=== PATIENT | female | born 2000 | race African-American/Black ===

== ENCOUNTER 2021-08-09 10:45 | Inpatient (IN) ==
[2021-08-09] MEDS ORDERED: LACTATED RINGERS 500 ML IV PRN (12:11)
[2021-08-09] MEDS ORDERED: TERBUTALINE 1 MG/1 ML VIAL SUBCUT PRN (12:11)
[2021-08-09] MEDS ORDERED: LIDOCAINE 1% 50 ML VIAL MISC INJ ONE (12:11)
[2021-08-09] MEDS ORDERED: CARBOPROST TROMETHAMINE 250 MCG/ML AMP IM PRN (12:11)
[2021-08-09] MEDS ORDERED: MEPERIDINE 50 MG/1 ML VIAL IV PRN (12:11)
[2021-08-09] MEDS ORDERED: miSOPROStoL 200 MCG TABLET VAG PRN (12:11)
[2021-08-09] MEDS ORDERED: AMPICILLIN INJ 2,000 MG in SODIUM CHLORIDE 0.9% 100 ML IV ONE (12:23)
[2021-08-09] MEDS ORDERED: OXYTOCIN/LR 20 UNIT/1,000 ML BAG IV SCH (12:30)
[2021-08-09] MEDS ORDERED: LACTATED RINGERS 1,000 ML IV SCH ×3 (12:30→22:30)
[2021-08-09 12:46] LABS: Albumin 2.7 G/DL (3.4-5.0); Bilirubin,Total 0.5 MG/DL (0.20-1.00); Calcium 10.2 MG/DL (8.5-10.1); Osmolality,Calculated 276.5 MOS/KG (273-304); Potassium 3.9 MMOL/L (3.5-5.1); Total Protein 7.9 G/DL (6.4-8.2)
[2021-08-09] MEDS: ONDANSETRON 4 MG/2 ML VIAL IV PRN (12:47)
[2021-08-09 13:03] LABS: Basophils % 0.3 % (0.0-0.8); Eosinophils % 0.1 % (0.00-10.9); Hematocrit 28.9 VOL% (35.7-47.0); Immature Granulocytes % 4.5 %; Immature Granulocytes Absolute 0.68 #; Lymphocytes # 2.7 10*3/uL (1.4-4.0); Lymphocytes % 17.7 % (21.3-54.2); Mean Corpuscular HGB Conc 25.3 GM/DL (32-36); Mean Corpuscular Volume 59.8 FL (87-102); Mean Platelet Volume 9.7 FL (9.6-12.0); Monocytes % 6.4 % (1.7-12.7); NRBC # 0.34 10*3/uL; Platelet Count 491 T/CUMM (130-400); Red Blood Count 4.83 MC/CUMM (3.8-5.5); Red Cell Distribution Width 22.7 % (9.3-17.3); White Blood Count 15.1 T/CUMM (4-12)
[2021-08-09 13:05] LABS: Hemoglobin 7.3 GM/DL (12.0-16.0)
[2021-08-09] MEDS ORDERED: LACTATED RINGERS 1,000 ML IV ONE (14:20)
[2021-08-09] MEDS ORDERED: ePHEDrine 50 MG/ML VIAL IV PRN (14:20)
[2021-08-09] MEDS ORDERED: FAMOTIDINE 20 MG/2 ML VIAL IV ONE (14:20)
[2021-08-09] MEDS ORDERED: CITRIC ACID/SODIUM CITRATE 30 ML UDCUP PO ONE (14:20)
[2021-08-09] MEDS ORDERED: diphenhydrAMINE 50 MG/1 ML VIAL IV PRN ×2 (14:21)
[2021-08-09] MEDS ORDERED: hydrOXYzine HCL 25 MG/1 ML VIAL IM PRN (14:21)
[2021-08-09] MEDS ORDERED: PROMETHAZINE 25 MG/1 ML VIAL IM ONE (14:21)
[2021-08-09] MEDS ORDERED: NALOXONE 0.4 MG/ML VIAL IV PRN (14:21)
[2021-08-09] MEDS ORDERED: fentaNYL 2 MCG/ROPIV 0.2% EPID 100 ML EPIDURAL SCH (14:30)
[2021-08-09] MEDS ORDERED: AMPICILLIN INJ 1,000 MG in SODIUM CHLORIDE 0.9% 100 ML IV SCH (16:30)
[2021-08-09] MEDS ORDERED: SODIUM CHLORIDE 0.9% 100 ML IV ONE (16:53)
[2021-08-09] MEDS ORDERED: miSOPROStoL 200 MCG TABLET ONE (19:53)
[2021-08-09] MEDS ORDERED: TRANEXAMIC ACID 1,000 MG/10 ML VIAL ONE (19:53)
[2021-08-09] MEDS ORDERED: OXYTOCIN/LR 20 UNIT/1,000 ML BAG IV ONE ×2 (19:53→22:21)
[2021-08-09] MEDS ORDERED: METHYLERGONOVINE 0.2 MG/1 ML AMP ONE (19:54)
[2021-08-09] MEDS ORDERED: CARBOPROST TROMETHAMINE 250 MCG/ML AMP IM ONE (19:54)
[2021-08-09] MEDS ORDERED: LIDOCAINE MPF 2% /EPI 20 ML VIAL ONE (21:10)
[2021-08-09] MEDS ORDERED: ONDANSETRON 4 MG/2 ML VIAL ONE (21:10)
[2021-08-09] MEDS ORDERED: ceFAZolin 2,000 MG/50 ML DUPLEX IV ONE (21:17)
[2021-08-09] MEDS ORDERED: KETOROLAC 30 MG/1 ML VIAL ONE (21:24)
[2021-08-09] MEDS ORDERED: ACETAMINOPHEN INJ 1,000 MG/100 ML VIAL IV ONE (21:24)
[2021-08-09] MEDS ORDERED: DEXAMETHASONE 4 MG/1 ML VIAL ONE (21:25)
[2021-08-09] MEDS ORDERED: SODIUM BICARBONATE 10 MEQ/10 ML SYRINGE IV ONE (21:28)
[2021-08-09] MEDS ORDERED: RHO(D) IMMUNE GLOBULIN 300 MCG SYRINGE IM ONE (22:21)
[2021-08-09] MEDS ORDERED: LIDOCAINE 2% 5 ML VIAL ONE (22:21)
[2021-08-09] MEDS ORDERED: ONDANSETRON 4 MG/2 ML VIAL IV PRN (22:21)
[2021-08-09] MEDS ORDERED: ACETAMINOPHEN 325 MG TABLET PO PRN (22:21)
[2021-08-09] MEDS ORDERED: SIMETHICONE CHEW 80 MG TABLET PO PRN (22:21)
[2021-08-09 22:35] LABS: Cord Venous Blood HCO3 20.3 MMOL/L; Cord Venous Blood PCO2 40.1 MMHG; Cord Venous Blood PO2 20.9 MMHG
[2021-08-10] MEDS: KETOROLAC 30 MG/1 ML VIAL IV SCH ×3 (03:33→16:11)
[2021-08-10] MEDS ORDERED: ACETAMINOPHEN 500 MG TABLET PO PRN (04:00)
[2021-08-10 05:53] LABS: Basophils % 0.1 % (0.0-0.8); Hematocrit 24.4 VOL% (35.7-47.0); Hemoglobin 6.5 GM/DL (12.0-16.0); Immature Granulocytes % 4.5 %; Immature Granulocytes Absolute 1.09 #; Lymphocytes # 0.8 10*3/uL (1.4-4.0); Lymphocytes % 3.1 % (21.3-54.2); Mean Corpuscular HGB Conc 26.6 GM/DL (32-36); Mean Corpuscular Volume 58.4 FL (87-102); Mean Platelet Volume 9.1 FL (9.6-12.0); Monocytes % 4.1 % (1.7-12.7); NRBC # 0.18 10*3/uL; Neutrophils % 88.2 % (38.7-73.9); Platelet Count 397 T/CUMM (130-400); Red Blood Count 4.18 MC/CUMM (3.8-5.5); Red Cell Distribution Width 22.3 % (9.3-17.3); White Blood Count 24.3 T/CUMM (4-12)
[2021-08-10 06:12] LABS: Band Neutrophils 1 % (0-10); Hypochromasia 2+; Lymphocytes 1 % (20-55); Microcytosis 1+; Platelet Estimate Adequate; Segmented Neutrophils 96 % (50-85); Total Cells Counted 100
[2021-08-10 08:09] LABS: Bilirubin,Urine Negative (Negative); Blood, Urine Moderate mg/dL (Negative); Glucose,Urine (UA) 50 mg/dL (Negative); Ketones,Urine 5 mg/dL (Negative); Mucus,Urine Occasional /LPF (Occasional); Nitrite,Urine Negative (Negative); Protein,Urine 30 MG/DL; RBC,Urine 59 /HPF (0-4); Squamous Epithelial Cell,Urine Occasional /HPF (0-10); Urine Appearance CLEAR (Clear); Urine Color Yellow (Yellow); Urine Specific Gravity 1.024 (1.001-1.035); Urine Urobilinogen < 2.0 EU/DL (0.2-1.0)
[2021-08-10 08:22] LABS: Protein/Creatinine Ratio,Urine 0.5 RATIO
[2021-08-10] MEDS ORDERED: FERROUS SULFATE 325 MG TABLET PO SCH (09:00)
[2021-08-10 09:32] LABS: Albumin 2.2 G/DL (3.4-5.0); Bilirubin,Total 0.5 MG/DL (0.20-1.00); Calcium 8.8 MG/DL (8.5-10.1); Osmolality,Calculated 275.7 MOS/KG (273-304); Total Protein 6.6 G/DL (6.4-8.2); Uric Acid 6.1 MG/DL (2.6-6.0)
[2021-08-10] MEDS: DOCUSATE SODIUM 100 MG CAPSULE PO SCH ×2 (09:44→20:59)
[2021-08-10] MEDS: MULTIVITAMIN (PRENATAL) TABLET PO SCH (09:44)
[2021-08-10] MEDS: FERROUS SULFATE 325 MG TABLET PO SCH ×3 (09:44→20:59)
[2021-08-10 09:55] LABS: INR 0.9; Partial Thromboplastin Time 29.1 SECS (23.9-33.8)
[2021-08-10] MEDS: ONDANSETRON 4 MG/2 ML VIAL IV PRN (10:01)
[2021-08-10] MEDS: MAGNESIUM HYDROXIDE SUSP 30 ML UDCUP PO PRN (20:59)
[2021-08-10] MEDS: IBUPROFEN 800 MG TABLET PO PRN (21:00)
[2021-08-11] MEDS: IBUPROFEN 800 MG TABLET PO PRN ×2 (07:22→18:34)
[2021-08-11] MEDS ORDERED: oxyCODONE/ACETAMINOPHEN 5-325 MG TABLET ONE (07:26)
[2021-08-11] MEDS: DOCUSATE SODIUM 100 MG CAPSULE PO SCH ×3 (07:27→22:30)
[2021-08-11] MEDS: FERROUS SULFATE 325 MG TABLET PO SCH ×4 (07:27→22:30)
[2021-08-11] MEDS: MULTIVITAMIN (PRENATAL) TABLET PO SCH ×2 (07:27→13:51)
[2021-08-11] MEDS: MAGNESIUM HYDROXIDE SUSP 30 ML UDCUP PO PRN (07:30)
[2021-08-11] MEDS: oxyCODONE/ACETAMINOPHEN 5-325 MG TABLET PO PRN ×3 (07:32→18:34)
[2021-08-11] MEDS ORDERED: SIMETHICONE CHEW 80 MG TABLET PO PRN (07:57)
[2021-08-11] MEDS ORDERED: BISACODYL 10 MG SUPP RECTAL PRN ×2 (07:58→12:48)
[2021-08-11] MEDS: SIMETHICONE CHEW 125 MG TABLET PO PRN ×2 (08:10→17:56)
[2021-08-11] MEDS: ONDANSETRON 4 MG/2 ML VIAL IV PRN (12:53)
[2021-08-12] MEDS: IBUPROFEN 800 MG TABLET PO PRN ×2 (03:41→16:10)
[2021-08-12] MEDS: FERROUS SULFATE 325 MG TABLET PO SCH ×3 (10:27→21:54)
[2021-08-12] MEDS: MULTIVITAMIN (PRENATAL) TABLET PO SCH (10:27)
[2021-08-12] MEDS: DOCUSATE SODIUM 100 MG CAPSULE PO SCH ×2 (10:28→21:54)
[2021-08-12] MEDS: LABETALOL 100 MG TABLET PO SCH ×2 (12:09→20:15)
[2021-08-12 13:25] LABS: INR 0.8; PT Patient Result 9.3 SECS (10.5-12.0); Partial Thromboplastin Time 26.2 SECS (23.9-33.8)
[2021-08-12 13:36] LABS: Albumin 2.4 G/DL (3.4-5.0); Basophils # 0.1 10*3/uL (0.0-0.2); Basophils % 0.3 % (0.0-0.8); Bilirubin,Total 0.4 MG/DL (0.20-1.00); Calcium 9.1 MG/DL (8.5-10.1); Eosinophils % 0.1 % (0.00-10.9); Hematocrit 22.1 VOL% (35.7-47.0); Immature Granulocytes % 8.3 %; Immature Granulocytes Absolute 1.75 #; Lymphocytes # 2.2 10*3/uL (1.4-4.0); Lymphocytes % 10.5 % (21.3-54.2); Mean Corpuscular HGB Conc 25.8 GM/DL (32-36); Mean Corpuscular Volume 59.4 FL (87-102); Mean Platelet Volume 9.3 FL (9.6-12.0); Monocytes % 3.6 % (1.7-12.7); NRBC # 0.52 10*3/uL; Neutrophils % 77.2 % (38.7-73.9); Osmolality,Calculated 278.4 MOS/KG (273-304); Platelet Count 433 T/CUMM (130-400); Potassium 3.7 MMOL/L (3.5-5.1); Red Blood Count 3.72 MC/CUMM (3.8-5.5); Red Cell Distribution Width 22.5 % (9.3-17.3); Total Protein 7.2 G/DL (6.4-8.2)
[2021-08-12 13:43] LABS: Hemoglobin 5.7 GM/DL (12.0-16.0)
[2021-08-12] MEDS ORDERED: SODIUM CHLORIDE 0.9% 1,000 ML IV PRN (13:54)
[2021-08-12 14:19] LABS: Band Neutrophils 2 % (0-10); Lymphocytes 10 % (20-55); Metamyelocytes 5 %; Myelocytes 1 %; Nucleated Red Blood Cells 1 (0-5); Segmented Neutrophils 82 % (50-85); Total Cells Counted 100
[2021-08-12 14:24] LABS: Hypochromasia 2+
[2021-08-12 14:25] LABS: Polychromasia Few
[2021-08-12 14:26] LABS: Elliptocytes Few; Microcytosis 2+
[2021-08-12 14:27] LABS: Platelet Estimate Increased
[2021-08-12 14:46] LABS: Bacteria,Urine Occasional /HPF (Few); Bilirubin,Urine Negative (Negative); Blood, Urine Moderate mg/dL (Negative); Glucose,Urine (UA) 50 mg/dL (Negative); Hyaline Casts,Urine 4 /LPF (0-3); Ketones,Urine Negative (Negative); Mucus,Urine Occasional /LPF (Occasional); Nitrite,Urine Negative (Negative); Protein,Urine 100 MG/DL; RBC,Urine 46 /HPF (0-4); Squamous Epithelial Cell,Urine Occasional /HPF (0-10); Urine Appearance CLEAR (Clear); Urine Color Yellow (Yellow); Urine Specific Gravity 1.024 (1.001-1.035); Urine Urobilinogen < 2.0 EU/DL (0.2-1.0)
[2021-08-12] MEDS: MAGNESIUM HYDROXIDE SUSP 30 ML UDCUP PO PRN (21:54)
[2021-08-13] MEDS: oxyCODONE/ACETAMINOPHEN 5-325 MG TABLET PO PRN ×2 (01:07→08:40)
[2021-08-13 02:55] LABS: Basophils # 0.1 10*3/uL (0.0-0.2); Basophils % 0.5 % (0.0-0.8); Eosinophils # 0.1 10*3/uL (0.0-0.87); Eosinophils % 0.4 % (0.00-10.9); Hematocrit 27.5 VOL% (35.7-47.0); Hemoglobin 7.9 GM/DL (12.0-16.0); Lymphocytes # 2.3 10*3/uL (1.4-4.0); Lymphocytes % 13.5 % (21.3-54.2); Mean Corpuscular HGB Conc 28.7 GM/DL (32-36); Mean Corpuscular Volume 67.2 FL (87-102); Mean Platelet Volume 8.9 FL (9.6-12.0); Monocytes % 5.2 % (1.7-12.7); NRBC # 0.39 10*3/uL; Neutrophils % 70.4 % (38.7-73.9); Platelet Count 365 T/CUMM (130-400); Red Blood Count 4.09 MC/CUMM (3.8-5.5); Red Cell Distribution Width 30.8 % (9.3-17.3); White Blood Count 16.9 T/CUMM (4-12)
[2021-08-13 03:09] LABS: Lymphocytes 15 % (20-55); Metamyelocytes 1 %; Myelocytes 2 %; Nucleated Red Blood Cells 1 (0-5); Segmented Neutrophils 77 % (50-85); Total Cells Counted 100
[2021-08-13 03:10] LABS: Hypochromasia 2+; Ovalocytes 2+; Platelet Estimate Increased; Polychromasia Few
[2021-08-13 03:11] LABS: Microcytosis 1+
[2021-08-13] MEDS: IBUPROFEN 800 MG TABLET PO PRN (04:15)
[2021-08-13] MEDS: FERROUS SULFATE 325 MG TABLET PO SCH (08:39)
[2021-08-13] MEDS: SIMETHICONE CHEW 125 MG TABLET PO PRN (08:39)
[2021-08-13] MEDS: MAGNESIUM HYDROXIDE SUSP 30 ML UDCUP PO PRN (08:39)
[2021-08-13] MEDS: MULTIVITAMIN (PRENATAL) TABLET PO SCH (08:39)
[2021-08-13] MEDS: LABETALOL 100 MG TABLET PO SCH (08:39)
[2021-08-13] MEDS: DOCUSATE SODIUM 100 MG CAPSULE PO SCH (09:15)
[2021-08-13 09:28] VITALS: BP 145/93
[2021-08-13] MEDS ORDERED: LABETALOL 100 MG TABLET PO ONE (09:34)
[2021-08-13] MEDS ORDERED: LABETALOL 200 MG TABLET PO SCH (21:00)
== END 2021-08-13 11:55 | disposition home or self-care (01) | DRG 786 ==
LOC: N.LD 10:45 → N.OB 08-10 02:02
PROVIDERS: ADMIT Obstetrics & Gynecology; ATTEND Obstetrics & Gynecology
PROC: LDCSECT (ICD-10-PCS; 2021-08-09 21:15)